=== PATIENT | male | born 1980 | race Caucasian/White ===

== ENCOUNTER → 2016-09-24 | Outpatient (CLI) | payer BC ==
--- NOTE | 2016-09-24 16:45 | US ---
EXAMINATION TYPE: US thyroid st tissue head/neck DATE OF EXAM: 09/24/2016 COMPARISON: NONE CLINICAL HISTORY: L72.0 Epidermal cyst L side of neck. Palpable left posterior upper back/lower neck noted x 2 months. Tech Impression: At patient's c/o palpable is solid, hyperechoic, oval mass and may be possible lipom a with size = 2.5 x 2.6 x 0.9cm. IMPRESSION: There is an oval-shaped subcutaneous solid mass in the area of concern on the left side of the neck. This is suggestive of a lipoma. The sonographic features are benign.
== END | disposition home or self-care (01) ==
LOC: RADUSWWP 16:17
PROVIDERS: ATTEND Family Medicine
DX: R22.1 Localized swelling, mass and lump, neck (principal)
CPT/HCPCS: 76536

== ENCOUNTER 2019-08-27 16:49 | Emergency (ER) | payer BC, OTHER ==
[2019-08-27 17:07] VITALS: BP 154/100; PULSE 81; RESP 18; TEMP 98.1
--- NOTE | 2019-08-27 17:42 | ED ---
Chest Pain HPI - General Chief Complaint: Chest Pain Stated Complaint: Chest, leg arm pain, [facility] Time Seen by Provider: 08/27/19 17:13 Source: patient, RN notes reviewed, old records reviewed Mode of arrival: ambulatory Limitations: no limitations - History of Present Illness Initial Comments: This is a 38-year-old male DF for evaluation complaining of anterior chest pain no chest pain patient had trauma today at work he had low back from a machine he was working on. It did hit him in the chest he loss as well and complaining of still chest pain now no other injuries noted. No shortness of breath. No other complaints or injuries MD Complaint: chest pain -: hour(s) (2) Onset: during rest ( 10) Pain Location: substernal Pain Radiation: none Severity: moderate Quality: aching Consistency: constant Improves With: nothing Worsens With: nothing Anginal Symptoms: other (None) Other Symptoms: other (None) - Related Data Previous Rx's Medication Instructions Recorded Ibuprofen [Motrin] 600 mg PO Q6HR PRN #20 tab 03/27/14 Orphenadrine [Norflex] 100 mg PO Q12H #10 tablet.er 03/27/14 Allergies Allergy/AdvReac Type Severity Reaction Status Date / Time No Known Allergies Allergy Verified 08/27/19 17:07 Review of Systems ROS Statement: Those systems with pertinent positive or pertinent negative responses have been documented in the HPI. ROS Other: All systems not noted in ROS Statement are negative. Past Medical History Past Medical History: Pulmonary Embolus (PE) History of Any Multi-Drug Resistant Organisms: None Reported Past Surgical History: Orthopedic Surgery Additional Past Surgical History / Comment(s): shoulders Past Psychological History: No Psychological Hx Reported Smoking Status: Never smoker Past Alcohol Use History: Occasional Past Drug Use History: None Reported General Exam Limitations: no limitations General appearance: alert, in no apparent distress Head exam: Present: atraumatic, normocephalic, normal inspection Eye exam: Present: normal appearance, PERRL, EOMI. Absent: scleral icterus, conjunctival injection, periorbital swelling ENT exam: Present: normal exam, mucous membranes moist Neck exam: Present: normal inspection. Absent: tenderness, meningismus, lymphadenopathy Respiratory exam: Present: normal lung sounds bilaterally. Absent: respiratory distress, wheezes, rales, rhonchi, stridor Cardiovascular Exam: Present: regular rate, normal rhythm, normal heart sounds. Absent: systolic murmur, diastolic murmur, rubs, gallop, clicks GI/Abdominal exam: Present: soft, normal bowel sounds. Absent: distended, tenderness, guarding, rebound, rigid Extremities exam: Present: normal inspection, full ROM, normal capillary refill. Absent: tenderness, pedal edema, joint swelling, calf tenderness Back exam: Present: normal inspection Neurological exam: Present: alert, oriented X3, CN II-XII intact Psychiatric exam: Present: normal affect, normal mood Skin exam: Present: warm, dry, intact, normal color. Absent: rash Course Vital Signs 08/27/19 17:03 Temperature 98.1 F Pulse Rate 81 Respiratory 18 Rate Blood Pressure 154/100 O2 Sat by Pulse 98 Oximetry - Reevaluation(s) Reevaluation #1: 08/27/19 17:41 Medical records reviewed Reevaluation #2: 08/27/19 17:41 Not requiring pain medication Chest Pain MDM - MDM 38 male DF for evaluation of anterior chest pain substernal chest pain. Traumatic in nature chest x-ray is negative for traumatic injury and patient can be discharged Disposition Clinical Impression: Chest pain, Chest wall contusion Disposition: HOME SELF-CARE Condition: Good Instructions (If sedation given, give patient instructions): Costochondritis (ED), Rib Contusion (ED) Is patient prescribed a controlled substance at d/c from ED?: No Referrals: Wander Stafford MD [Primary Care Provider] - 1-2 days
--- NOTE | 2019-08-27 17:55 | XR ---
EXAMINATION TYPE: XR chest 2V DATE OF EXAM: 08/27/2019 COMPARISON: NONE HISTORY: Chest pain TECHNIQUE: 2 views FINDINGS: Heart and mediastinum are normal. Lungs are clear. Diaphragm is normal. Bony thorax appears normal. IMPRESSION: Normal chest.
== END 2019-08-27 18:14 | disposition home or self-care (01) ==
LOC: EC 16:49
DX: S20.219A Contusion of unspecified front wall of thorax, initial encounter (principal); M54.5 Low back pain; Z86.711 Personal history of pulmonary embolism; W22.8XXA Striking against or struck by other objects, initial encounter; Y93.89 Activity, other specified; Y92.69 Other specified industrial and construction area as the place of occurrence of the external cause; Y99.0 Civilian activity done for income or pay
CPT/HCPCS: 71046; 99284